=== PATIENT | male | born 1930 | race Caucasian/White ===

== ENCOUNTER → 2016-05-28 | Outpatient (CLI) | payer MEDICARE, OTHER ==
[~2016-05-28] MED LIST: DIAZEPAM 5 MG TABLET ONE
== END ==
LOC: RAD 09:16
PROVIDERS: ATTEND Orthopaedic Surgery Sports Medicine
DX: M25.551 Pain in right hip (principal); M16.11 Unilateral primary osteoarthritis, right hip
CPT/HCPCS: 73721; A9270

== ENCOUNTER 2016-06-16 14:09 | Emergency (ER) | payer MEDICARE, OTHER ==
--- NOTE | 2016-06-16 14:20 | ER Document Report ---
ED Medical Screen (RME) - General Chief Complaint: Fall Injury Stated Complaint: FALL/HEAD INJURY Mode of Arrival: Wheelchair Information source: Patient, Relative - Notes: Patient presents to the emergency department post fall. reports that he was pulling a stake out of the ground when he fell backwards onto grass hitting his head hurting his neck and his back. Patient reports he feels very short of breath now. Patient reports pain when he takes a deep breath. I have greeted and performed a rapid initial assessment of this patient. A comprehensive ED assessment and evaluation of the patient, analysis of test results and completion of the medical decision making process will be conducted by additional ED providers. TRAVEL OUTSIDE OF THE [place] IN LAST 30 DAYS: No - Related Data Allergies/Adverse Reactions: guaifenesin [From Entex] Allergy (Unknown, Verified 06/16/16 14:16) phenylephrine HCl [From Entex] Allergy (Unknown, Verified 06/16/16 14:16) phenylpropanolamine [From Entex] Allergy (Unknown, Verified 06/16/16 14:16) pseudoephedrine tannate [From Entex] Allergy (Unknown, Verified 06/16/16 14:16) Past Medical History - Social History Chew tobacco use (# tins/day): No Frequency of alcohol use: None Drug Abuse: None - Past Medical History Cardiac Medical History: Reports: Hx Coronary Artery Disease, Hx Heart Attack, Hx Hypercholesterolemia, Hx Hypertension Pulmonary Medical History: Reports: Hx Bronchitis, Hx COPD Endocrine Medical History: Reports: Hx Hypothyroidism Renal/ Medical History: Reports: Hx Benign Prostatic Hyperplasia. Denies: Hx Peritoneal Dialysis GI Medical History: Reports: Hx Hiatal Hernia Musculoskeltal Medical History: Reports Hx Arthritis Past Surgical History: Reports: Hx Abdominal Surgery - hernia, Hx Cardiac Catheterization, Hx Cardiac Surgery - cath- no stents, Hx Cholecystectomy, Hx Herniorrhaphy, Hx Orthopedic Surgery - carpal tunnel bilat. Denies: Hx Coronary Stent - Immunizations Hx Diphtheria, Pertussis, Tetanus Vaccination: Yes - 09/28/2011
[2016-06-16] MEDS ORDERED: MORPHINE SULFATE 10 MG/ML INJ IV PRN (15:11)
--- NOTE | 2016-06-16 15:11 | ER Document Report ---
ED Fall - General Chief Complaint: Fall Injury Stated Complaint: FALL/HEAD INJURY Time seen by provider: 15:08 Mode of Arrival: Wheelchair Information source: Patient, Relative - Notes: This is an 86-year-old man with a history of COPD, hypertension, dyslipidemia who presents to the emergency room with a fall at home. The patient was out in his yard manipulating a 2 x 4 post. The post cracked while he was moving it back and the patient fell straight back landing on his back and hitting his head. There was no loss of consciousness. The patient's was at the scene and she states that his been acting normally. The patient complains of headache , back pain, pain to the thorax when he moves. TRAVEL OUTSIDE OF THE [place] IN LAST 30 DAYS: No - HPI Occurred: Just prior to arrival Where: Outdoors Context: Slipped, Lost balance Associated symptoms: Dazed/confused. denies: Lost consciousness, Seizure Location of injury/pain: Back, Head Quality of pain: Dull Severity: Moderate Pain Level: 3 - Related data Allergies/Adverse Reactions: guaifenesin [From Entex] Allergy (Unknown, Verified 06/16/16 14:16) phenylephrine HCl [From Entex] Allergy (Unknown, Verified 06/16/16 14:16) phenylpropanolamine [From Entex] Allergy (Unknown, Verified 06/16/16 14:16) pseudoephedrine tannate [From Entex] Allergy (Unknown, Verified 06/16/16 14:16) Past Medical History - General Information source: Patient, Relative - - Social History Smoking Status: Never Smoker Cigarette use (# per day): No Chew tobacco use (# tins/day): No Frequency of alcohol use: None Drug Abuse: None Lives with: Family Family History: Reviewed & Not Pertinent Patient has suicidal ideation: No Patient has homicidal ideation: No - Past Medical History Cardiac Medical History: Reports: Hx Coronary Artery Disease, Hx Heart Attack, Hx Hypercholesterolemia, Hx Hypertension Pulmonary Medical History: Reports: Hx Bronchitis, Hx COPD Endocrine Medical History: Reports: Hx Hypothyroidism Renal/ Medical History: Reports: Hx Benign Prostatic Hyperplasia. Denies: Hx Peritoneal Dialysis GI Medical History: Reports: Hx Hiatal Hernia Musculoskeltal Medical History: Reports Hx Arthritis Past Surgical History: Reports: Hx Abdominal Surgery - hernia, Hx Cardiac Catheterization, Hx Cardiac Surgery - cath- no stents, Hx Cholecystectomy, Hx Herniorrhaphy, Hx Orthopedic Surgery - carpal tunnel bilat. Denies: Hx Coronary Stent - Immunizations Hx Diphtheria, Pertussis, Tetanus Vaccination: Yes - 09/28/2011 Hx Pneumococcal Vaccination: 04/24/15 Review of Systems - Review of Systems Notes: Review of systems: Constitutional: Denies fever, chills. EENT: Denies ear pain, sinus tenderness, throat pain, throat swelling. Cardiovascular: Denies chest pain, palpitations, dyspnea or edema. Respiratory: Denies wheezing, cough, hemoptysis. Abdomen: Denies abdominal pain, nausea, vomiting, diarrhea. Denies BRBPR or melena. Genitourinary: Denies dysuria, pyuria, hematuria, flank pain. Musculoskeletal: Positive for upper, mid and lower back pain. Neurologic: Positive for headache. Denies photophobia, neck stiffness, weakness. Denies loss of bowel or bladder function. Denies saddle anesthesia. Skin: Denies rash, lesions. Physical Exam - Vital signs Vitals: Temp Pulse Resp BP Pulse Ox 97.5 F 67 20 149/68 H 97 06/16/16 14:16 06/16/16 14:16 06/16/16 14:16 06/16/16 14:16 06/16/16 14:16 Notes: Physical exam: GENERAL: 86-year-old man, alert and oriented 3, appears to be in moderate distress. HEAD: Normocephalic. Patient does have mild tenderness to the back of the occipital area. Patient does have a cervical collar in place. EYES: Pupils equal round and reactive to light, extraocular movements intact, sclera anicteric, conjunctiva are normal. ENT: TMs normal, nares patent, oropharynx clear without exudates. Moist mucous membranes. NECK: Cervical collar in place. LUNGS: Breath sounds clear to auscultation bilaterally and equal. No wheezes rales or rhonchi. HEART: Regular rate and rhythm without murmurs, rubs or gallops. ABDOMEN: Soft, normoactive bowel sounds. No tenderness to palpation. No guarding, no rebound. No masses appreciated. BACK: Patient does have tenderness to palpation over the thoracic spine, paraspinal muscles in the posterior ribs. There is no crepitus. EXTREMITIES: Normal range of motion, no pitting or edema. No clubbing or cyanosis. NEUROLOGICAL: Cranial nerves II through XII grossly intact. Normal speech, normal gait. PSYCH: Normal mood, normal affect. SKIN: Warm, Dry, normal turgor, no rashes or lesions noted. Course - Re-evaluation Re-evalutation: 06/16/16 23:45 Patient was observed several hours in the ER. He was given pain medicine and nausea medicine. Given the mechanism his fall and his advanced age, he did receive a CT of the head, cervical spine, chest, abdomen and pelvis. I've reviewed the reports as well as a CT studies. There does not appear to be any spinal fractures. The patient does have a lot of back tenderness to palpation. He is alert and oriented 3. He has ambulated to the bathroom. He does feel a little bit better after the pain medicine. - Vital Signs Vital signs: Temp Pulse Resp BP Pulse Ox 97.9 F 64 18 126/77 H 93 06/16/16 15:39 06/16/16 20:05 06/16/16 20:05 06/16/16 20:05 06/16/16 20:05 - Laboratory Result Diagrams: 06/16/16 16:00 06/16/16 16:00 Laboratory results interpreted by me: 06/16/16 06/16/16 16:00 16:00 RDW 14.1 H Total Protein 6.2 L - Diagnostic Test Radiology reviewed: Image reviewed, Reports reviewed - CT of the head shows no acute bleed. CT of the cervical spine shows no acute fracture. CT of the chest and abdomen and pelvis show no bony injuries, no organ injuries. Discharge - Discharge Clinical Impression: concussion Contusion of left back wall of thorax Qualifiers: Encounter type: initial encounter Qualified Code(s): S20.222A - Contusion of left back wall of thorax, initial encounter Condition: Stable Disposition: HOME, SELF-CARE Instructions: Concussion ([facility]), Oral Narcotic Medication ([facility]) Additional Instructions: Recommendations: Rest, drink plenty of fluids, take stool softener. Oxycodone is a narcotic: See the narcotic instruction sheet. The muscle relaxer is the Robaxin: Take it as prescribed. For the first dose, I would take it separate from the oxycodone to see if it makes her tired. Follow-up with Dr. Eric: Bring a copy of today's CAT scans as well as blood work. You may require some physical therapy because of the pain. Return to the emergency room for any worsening pain, shortness of breath, abdominal pain or any concerns he getting worse. The pain medicine you're taking prescribed as a narcotic. There are several important things you should know about this medicine: 1. Taking narcotics for too long can lead to physical and mental dependence. Take this medicine only if really needed and in the lowest quantity to achieve pain relief. 2. Do not drink alcohol while on this medicine. Alcohol interacts with narcotics and the combination can be dangerous. 3. Do not drive or operate machinery while on this medicine. 4. Narcotics do cause constipation, so drink plenty of fluids and daily stool softeners. Prescriptions: Oxycodone HCl 5 mg PO Q6HP PRN #25 tablet PRN Reason: Methocarbamol [Robaxin 500 mg Tablet] 500 mg PO BID #20 tablet Referrals: JEANINE ERIC MD [Primary Care Provider] - Follow up tomorrow
[2016-06-16] MEDS ORDERED: ONDANSETRON HCL INJ/PF 4 MG/2 ML SDV IV ONE (15:12)
[2016-06-16 16:14] LABS: ABSOLUTE EOSINOPHILS # (AUTO) 0.2 10^3/uL (0.0-0.6); ABSOLUTE LYMPHOCYTES (AUTO) 0.8 10^3/uL (0.5-4.7); ABSOLUTE MONOCYTES (AUTO) 0.4 10^3/uL (0.1-1.4); ABSOLUTE NEUT (AUTO) 3.6 10^3/uL (1.7-8.2); BASOPHILS % (AUTO) 0.8 % (0-2); EOSINOPHILS % (AUTO) 3.4 % (0-6); HEMATOCRIT 40.1 % (37.9-51.0); HEMOGLOBIN 13.7 g/dL (13.5-17.0); LYMPHOCYTES % (AUTO) 15.2 % (13-45); MEAN CORPUSCULAR HGB CONC 34.2 g/dL (32.0-36.0); MEAN CORPUSCULAR VOLUME 88 fl (80-97); MONOCYTES % (AUTO) 8.4 % (3-13); RED BLOOD COUNT 4.57 10^6/uL (4.35-5.55); RED CELL DISTRIBUTION WIDTH 14.1 % (11.5-14.0); SEGMENTED NEUTROPHILS % (AUTO) 72.2 % (42-78)
[2016-06-16 16:33] LABS: ALANINE AMINOTRANSFERASE 28 U/L (21-72); ALBUMIN 3.8 g/dL (3.5-5.0); ALKALINE PHOSPHATASE 95 U/L (38-126); ANION GAP 13 (5-19); ASPARTATE AMINO TRANSFERASE 23 U/L (17-59); BILIRUBIN,DIRECT 0.2 mg/dL (0.0-0.4); BILIRUBIN,TOTAL 0.5 mg/dL (0.2-1.3); BLOOD UREA NITROGEN 20 mg/dL (7-20); CALCIUM 9.9 mg/dL (8.4-10.2); CARBON DIOXIDE 25 mmol/L (22-30); CHLORIDE 106 mmol/L (98-107); CREATININE RESULT 0.77 mg/dL (0.52-1.25); GLUCOSE 108 mg/dL (75-110); POTASSIUM 4.4 mmol/L (3.6-5.0); SODIUM 143.6 mmol/L (137-145); TOTAL PROTEIN 6.2 g/dL (6.3-8.2)
[2016-06-16] MEDS ORDERED: MORPHINE SULFATE 10 MG/ML INJ IV ONE (16:45)
[2016-06-16] MEDS ORDERED: THROMBIN (BOVINE) 5000 UNIT EPITAXIS KIT TP ONE (16:46)
[2016-06-16] MEDS ORDERED: OXYCODONE-ACETAMINOPHEN 5-325 MG TABLET PO ONE (19:56)
[2016-06-16] MEDS ORDERED: METHOCARBAMOL 500 MG TABLET PO ONE (19:57)
[2016-06-16] MEDS ORDERED: ONDANSETRON ODT 4 MG TAB (6 TAB/DSPK) PO PRN (19:57)
[2016-06-16 20:07] VITALS: BP 126/77
== END 2016-06-16 20:05 | disposition home or self-care (01) ==
LOC: ER 14:09
DX: S06.0X0A Concussion without loss of consciousness, initial encounter (principal); S20.222A Contusion of left back wall of thorax, initial encounter; W18.39XA Other fall on same level, initial encounter; Y93.89 Activity, other specified; Y92.007 Garden or yard of unspecified non-institutional (private) residence as the place of occurrence of the external cause; R51 Headache; M54.5 Low back pain; M54.89 Other dorsalgia; I25.10 Atherosclerotic heart disease of native coronary artery without angina pectoris; I25.2 Old myocardial infarction; I10 Essential (primary) hypertension; J44.9 Chronic obstructive pulmonary disease, unspecified; Z88.8 Allergy status to other drugs, medicaments and biological substances
CPT/HCPCS: 99284; 36415; 85025; 80053; 70450; 71250; 72125; 74177; A9270 ×3; J2270; J2405

== ENCOUNTER → 2016-06-18 | Outpatient (CLI) | payer MEDICARE, OTHER ==
[2016-06-18 17:26] LABS: ABSOLUTE EOSINOPHILS # (AUTO) 0.2 10^3/uL (0.0-0.6); ABSOLUTE MONOCYTES (AUTO) 0.5 10^3/uL (0.1-1.4); ABSOLUTE NEUT (AUTO) 3.5 10^3/uL (1.7-8.2); EOSINOPHILS % (AUTO) 3.6 % (0-6); HEMATOCRIT 41.8 % (37.9-51.0); HEMOGLOBIN 14.3 g/dL (13.5-17.0); HGB HCT DIFFERENCE 1.1; LYMPHOCYTES % (AUTO) 18.9 % (13-45); MEAN CORPUSCULAR HEMOGLOBIN 29.8 pg (27.0-33.4); MEAN CORPUSCULAR HGB CONC 34.1 g/dL (32.0-36.0); MEAN CORPUSCULAR VOLUME 88 fl (80-97); MONOCYTES % (AUTO) 9.1 % (3-13); RED BLOOD COUNT 4.78 10^6/uL (4.35-5.55); RED CELL DISTRIBUTION WIDTH 14.4 % (11.5-14.0); SEGMENTED NEUTROPHILS % (AUTO) 67.4 % (42-78); WHITE BLOOD COUNT 5.2 10^3/uL (4.0-10.5)
[2016-06-18 17:35] LABS: ALANINE AMINOTRANSFERASE 25 U/L (21-72); ALBUMIN 4.1 g/dL (3.5-5.0); ALKALINE PHOSPHATASE 85 U/L (38-126); ANION GAP 9 (5-19); ASPARTATE AMINO TRANSFERASE 21 U/L (17-59); BILIRUBIN,DIRECT 0.2 mg/dL (0.0-0.4); BILIRUBIN,TOTAL 0.6 mg/dL (0.2-1.3); BLOOD UREA NITROGEN 15 mg/dL (7-20); CALCIUM 10.6 mg/dL (8.4-10.2); CARBON DIOXIDE 31 mmol/L (22-30); CHLORIDE 102 mmol/L (98-107); CREATININE RESULT 0.81 mg/dL (0.52-1.25); GLUCOSE 146 mg/dL (75-110); POTASSIUM 4.5 mmol/L (3.6-5.0); SODIUM 142.1 mmol/L (137-145); TOTAL PROTEIN 6.5 g/dL (6.3-8.2)
== END ==
LOC: OD 15:45
PROVIDERS: ATTEND Orthopaedic Surgery Hand Surgery
DX: I10 Essential (primary) hypertension (principal); Z11.2 Encounter for screening for other bacterial diseases
CPT/HCPCS: 36415; 80053; 85025; 87070

== ENCOUNTER → 2016-12-09 | Outpatient (CLI) | payer MEDICARE, OTHER ==
[2016-12-09 08:54] LABS: ALANINE AMINOTRANSFERASE 29 U/L (21-72); ALBUMIN 3.9 g/dL (3.5-5.0); ALKALINE PHOSPHATASE 91 U/L (38-126); ANION GAP 10 (5-19); ASPARTATE AMINO TRANSFERASE 23 U/L (17-59); BILIRUBIN,DIRECT 0.3 mg/dL (0.0-0.4); BILIRUBIN,TOTAL 0.5 mg/dL (0.2-1.3); BLOOD UREA NITROGEN 12 mg/dL (7-20); CALCIUM 10.3 mg/dL (8.4-10.2); CARBON DIOXIDE 27 mmol/L (22-30); CHLORIDE 105 mmol/L (98-107); CHOLESTEROL 99.29 mg/dL (0-200); CREATININE RESULT 0.81 mg/dL (0.52-1.25); Direct HDL 37 mg/dL (>40); GLUCOSE 111 mg/dL (75-110); POTASSIUM 4.7 mmol/L (3.6-5.0); TOTAL PROTEIN 6.3 g/dL (6.3-8.2); TRIGLYCERIDES 51 mg/dL (<150)
[2016-12-09 09:05] LABS: DIRECT LDL 48 mg/dL (<100)
== END ==
LOC: LAB 08:16
PROVIDERS: ATTEND Internal Medicine
DX: I25.10 Atherosclerotic heart disease of native coronary artery without angina pectoris (principal); I10 Essential (primary) hypertension; I25.2 Old myocardial infarction; I34.0 Nonrheumatic mitral (valve) insufficiency; E78.4 Other hyperlipidemia; R00.1 Bradycardia, unspecified; J44.9 Chronic obstructive pulmonary disease, unspecified; R01.1 Cardiac murmur, unspecified; R09.89 Other specified symptoms and signs involving the circulatory and respiratory systems; Z79.899 Other long term (current) drug therapy; E03.9 Hypothyroidism, unspecified
CPT/HCPCS: 36415; 80053; 80061

== ENCOUNTER → 2017-08-04 | Outpatient (CLI) | payer MEDICARE, OTHER ==
[2017-08-04 09:49] LABS: CHOLESTEROL 162.33 mg/dL (0-200); TRIGLYCERIDES 65 mg/dL (<150)
[2017-08-04 10:00] LABS: DIRECT LDL 63 mg/dL (<100)
== END ==
LOC: OD 08:36
PROVIDERS: ATTEND Internal Medicine
DX: I25.10 Atherosclerotic heart disease of native coronary artery without angina pectoris (principal); I34.0 Nonrheumatic mitral (valve) insufficiency; E78.4 Other hyperlipidemia; R09.89 Other specified symptoms and signs involving the circulatory and respiratory systems; E78.5 Hyperlipidemia, unspecified; Z79.899 Other long term (current) drug therapy; E03.9 Hypothyroidism, unspecified; R42 Dizziness and giddiness
CPT/HCPCS: 36415; 80061

== ENCOUNTER → 2018-02-10 | Outpatient (CLI) | payer MEDICARE, OTHER ==
[2018-02-10 09:19] LABS: ALANINE AMINOTRANSFERASE 22 U/L (21-72); ALBUMIN 4.3 g/dL (3.5-5.0); ALKALINE PHOSPHATASE 79 U/L (38-126); ANION GAP 12 (5-19); ASPARTATE AMINO TRANSFERASE 27 U/L (17-59); BILIRUBIN,DIRECT 0.1 mg/dL (0.0-0.4); BILIRUBIN,TOTAL 0.5 mg/dL (0.2-1.3); BLOOD UREA NITROGEN 28 mg/dL (7-20); CARBON DIOXIDE 29 mmol/L (22-30); CHLORIDE 105 mmol/L (98-107); CHOLESTEROL 141.58 mg/dL (0-200); GLUCOSE 125 mg/dL (75-110); POTASSIUM 5.6 mmol/L (3.6-5.0); SODIUM 145.8 mmol/L (137-145); TRIGLYCERIDES 76 mg/dL (<150)
[2018-02-10 09:30] LABS: DIRECT LDL 77 mg/dL (<100)
== END ==
LOC: LAB 08:15
PROVIDERS: ATTEND Internal Medicine
DX: I25.10 Atherosclerotic heart disease of native coronary artery without angina pectoris (principal); I10 Essential (primary) hypertension; Z79.899 Other long term (current) drug therapy; E03.9 Hypothyroidism, unspecified; E78.5 Hyperlipidemia, unspecified; I25.2 Old myocardial infarction; I34.0 Nonrheumatic mitral (valve) insufficiency; R01.1 Cardiac murmur, unspecified; R09.89 Other specified symptoms and signs involving the circulatory and respiratory systems; R42 Dizziness and giddiness
CPT/HCPCS: 36415; 80053; 80061

== ENCOUNTER → 2018-12-10 | Outpatient (CLI) | payer MEDICARE, OTHER ==
--- NOTE | 2018-12-13 17:53 | XCELERA REPORT ---
[address] [address] Lower Extremity Arterial Evaluation Name: CHARLY AQUINO Age: 88 yrs Gender: Male : 1930 Patient Status: Outpatient Patient Location: Study Date: 12/10/2018 11:04 AM Procedure: A color flow and duplex scan of the lower extremity arteries was performed bilaterally with velocity and waveform anaylsis. Reason For Study: CLAUDICATION Ordering Physician: CONNOR FLORENTINO Performed By: Adriana Interiano Measurements and Calculations Right Left Prox PFA PSV 38.2 39.9 cm/sec Prox SFA PSV 73.4 75.5 cm/sec Mid SFA PSV 71.7 74.8 cm/sec Dist SFA PSV 63.3 59.4 cm/sec Prox Pop A PSV 53.7 45.2 cm/sec Prox MO PSV 63.9 30.9 cm/sec Prox DRYING MACHINE TENDER PSV 48.8 39.1 cm/sec Right Side Arterial Evaluation Normal velocity and triphasic waveforms noted from the Common Femoral artery to the infrageniculate vessels . Ankle Brachial index not obtained . Left Side Arterial Evaluation Normal velocity and triphasic waveforms noted from the Common Femoral artery to the infrageniculate vessels . Ankle Brachial index not obtained . Interpretation Summary No hemodynamically significant lesions in the bilateral lower extremities, on duplex imaging, at rest. : CONNOR FLORENTINO > Ed Sánchez
== END ==
LOC: SP 10:50
PROVIDERS: ATTEND Specialist
DX: I73.9 Peripheral vascular disease, unspecified (principal)
CPT/HCPCS: 93925

== ENCOUNTER → 2018-12-14 | Outpatient (CLI) | payer MEDICARE, OTHER ==
[2018-12-14 14:00] LABS: FOLATE > 20.00 ng/mL (>2.76)
== END ==
LOC: OD 11:43
PROVIDERS: ATTEND Specialist
DX: G62.9 Polyneuropathy, unspecified (principal)
CPT/HCPCS: 36415; 82607; 82746